=== PATIENT | male | born 1985 | race Hispanic/Latino ===

== ENCOUNTER 2021-09-20 18:19 | Emergency (ER) | payer OTHER ==
[~2021-09-20] VITALS: Ht 160 cm; Wt 72.6 kg
[2021-09-20 18:22] VITALS: BP 128/72
[2021-09-20] MEDS ORDERED: IBUP-2070 PO (19:14)
[2021-09-20] MEDS ORDERED: BACI30OI6 TP (19:14)
[2021-09-20] MEDS ORDERED: IBUPROFEN 600 MG TABLET PO ONE (19:30)
[2021-09-20] MEDS ORDERED: TETANUS/DIPHTHERIA TOXOID [ADULT] 0.5 ML VIAL IM ONE (19:30)
== END 2021-09-20 20:10 | disposition home or self-care (01) ==
LOC: EDH 18:19
DX: S01.01XA Laceration without foreign body of scalp, initial encounter (principal); Z79.1 Long term (current) use of non-steroidal anti-inflammatories (NSAID); X58.XXXA Exposure to other specified factors, initial encounter; Y93.89 Activity, other specified; Y92.89 Other specified places as the place of occurrence of the external cause; Y99.8 Other external cause status
CPT/HCPCS: 12001; 90471; 90714

== ENCOUNTER 2021-09-28 14:57 | Emergency (ER) | payer OTHER ==
[~2021-09-28] VITALS: Ht 160 cm; Wt 77.1 kg
[~2021-09-28 14:57] MED LIST: BACI30OI6 TP; IBUP-2070 PO
[2021-09-28 15:01] VITALS: BP 116/65
== END 2021-09-28 15:19 | disposition home or self-care (01) ==
LOC: EDH 14:57
DX: S01.01XD Laceration without foreign body of scalp, subsequent encounter (principal); Z79.1 Long term (current) use of non-steroidal anti-inflammatories (NSAID); X58.XXXD Exposure to other specified factors, subsequent encounter
CPT/HCPCS: 99281

== ENCOUNTER 2023-01-29 11:03 | Emergency (ER) | payer OTHER ==
[~2023-01-29] VITALS: Ht 160 cm; Wt 81.6 kg
[2023-01-29] MEDS ORDERED: GUAIFENESIN-CODEINE 5 ML SYRUP PO ONE (13:30)
[2023-01-29] MEDS ORDERED: IBUPROFEN 600 MG TABLET PO ONE (13:30)
[2023-01-29 13:49] LABS: SARS-CoV-2, RNA, NAAT NEGATIVE SARS CoV-2 (NEGATIVE)
[2023-01-29 13:55] LABS: INFLUENZA TYPE A Negative For Type A (NEGATIVE); INFLUENZA TYPE B Negative For Type B (NEGATIVE)
[2023-01-29] MEDS ORDERED: GUAI10LI15 PO (14:11)
[2023-01-29 14:26] VITALS: BP 128/68; PULSE 78; RESP 18; O2SAT 100
== END 2023-01-29 14:32 | disposition home or self-care (01) ==
LOC: EDH 11:03
DX: J06.9 Acute upper respiratory infection, unspecified (principal); H92.02 Otalgia, left ear; Z20.822 Contact with and (suspected) exposure to COVID-19; Z79.899 Other long term (current) drug therapy
CPT/HCPCS: 99283; 87635; 87804 ×2; C9803

== ENCOUNTER 2023-06-10 21:48 | Emergency (ER) | payer BC, OTHER ==
[~2023-06-10] VITALS: Ht 160 cm; Wt 83.9 kg
[~2023-06-10 21:48] MED LIST changes: +GUAI10LI15 PO
[2023-06-10 23:20] LABS: BASOPHILS # (AUTO) 0.01 K/uL (0.00-0.20); BASOPHILS % (AUTO) 0.1 % (0.0-5.0); EOSINOPHILS # (AUTO) 0.05 K/uL (0.00-0.70); EOSINOPHILS % (AUTO) 0.5 % (0.0-8.0); HEMATOCRIT 45.1 % (42-54); IMMATURE GRANULOCYTE ABSOLUTE 0.05 K/uL (0-1); LYMPHOCYTES # (AUTO) 0.5 K/uL (1.0-4.8); LYMPHOCYTES % (AUTO) 4.5 % (21.0-51.0); MEAN CORPUSCULAR HEMOGLOBIN 29.6 pg (27.0-33.0); MEAN CORPUSCULAR HGB CONC 34.4 g/dL (32.0-36.0); MEAN CORPUSCULAR VOLUME 86.1 fL (79-99); MONOCYTES # (AUTO) 0.3 K/uL (0.1-1.0); MONOCYTES % (AUTO) 3.1 % (3.0-13.0); NEUTROPHILS # (AUTO) 9.1 K/uL (1.8-7.7); NEUTROPHILS % (AUTO) 91.3 % (40.0-77.0); PLATELET COUNT (AUTO) 185 K/uL (130-400); RED BLOOD CELL COUNT(AUTO) 5.24 MIL/uL (4.50-6.20); RED CELL DISTRIBUTION WIDTH 12.1 % (11.0-15.5)
[2023-06-10 23:32] LABS: CREATININE 1.2 mg/dL (0.5-1.3); POTASSIUM 3.6 mmol/L (3.5-5.1)
[2023-06-10 23:37] LABS: ALBUMIN 3.8 g/dL (3.5-5.0); BILIRUBIN,TOTAL 0.6 mg/dL (0.2-1.0); TOTAL PROTEIN, SERUM 7.4 g/dL (6.0-8.3)
[2023-06-11] MEDS ORDERED: ONDA4TAB10 PO (00:39)
[2023-06-11 00:42] VITALS: BP 122/68; PULSE 94; RESP 16; O2SAT 97
[2023-06-11] MEDS ORDERED: FAMOTIDINE 20MG TAB PO ONE (01:00)
[2023-06-11] MEDS ORDERED: ACETAMINOPHEN 500 MG TABLET PO ONE (01:00)
[2023-06-11] MEDS ORDERED: ONDANSETRON ODT 4MG TAB SL SCH (01:00)
== END 2023-06-11 00:51 | disposition home or self-care (01) ==
LOC: EDH 21:48
DX: A08.4 Viral intestinal infection, unspecified (principal); R11.2 Nausea with vomiting, unspecified; R50.9 Fever, unspecified
CPT/HCPCS: 36415; 80053; 83690; 85025

== ENCOUNTER 2024-07-17 23:30 | Emergency (ER) | payer BC ==
[~2024-07-17] VITALS: Ht 160 cm; Wt 90.7 kg
[~2024-07-17 23:30] MED LIST changes: -BACI30OI6 TP; -GUAI10LI15 PO; -IBUP-2070 PO; +ONDA-243 PO
[2024-07-17 23:31] VITALS: BP 124/79; PULSE 77; RESP 16; TEMP 97.8
--- NOTE | 2024-07-18 01:17 | NUR ---
PT CALLED. NOT IN LOBBY , NOT IN MAIN ER. FAMILY THAT WAS WITH PT DURING TRIAGE NOT SEEN IN LOBBY WELL
--- NOTE | 2024-07-18 01:20 | NUR ---
PT CALLED, NOT IN LOBBY OR MAIN ER. NO COMMUNICATION ON DESIRE TO LEAVE
--- NOTE | 2024-07-18 01:20 | NUR ---
PT NOT IN LOBBY, NOT IN MAIN ER. DID NOT COMMUNICATE ON DESIRE TO LEAVE
--- NOTE | 2024-07-18 01:25 | NUR ---
PT CALLED, NO ANSWER
== END 2024-07-18 01:26 | disposition left against medical advice (07) ==
LOC: EDH 23:30
DX: L29.0 Pruritus ani (principal); Z53.21 Procedure and treatment not carried out due to patient leaving prior to being seen by health care provider